=== PATIENT | female | born 1975 ===

== ENCOUNTER 2025-08-21 18:31 | Emergency (ER) | payer SELFPAY ==
[~2025-08-21] VITALS: Ht 170.2 cm; Wt 63.5 kg
[2025-08-21 18:59] VITALS: BP 130/70
[2025-08-21] MEDS ORDERED: NAPROXEN 500 MG TABLET ONE (19:27)
[2025-08-21] MEDS ORDERED: ACETAMINOPHEN 500 MG TABLET ONE (19:27)
[2025-08-21] MEDS: NAPROXEN 500 MG TABLET PO ONE (19:29)
[2025-08-21] MEDS: ACETAMINOPHEN 500 MG TABLET PO ONE (19:29)
[2025-08-21] MEDS ORDERED: TDAP DIPH,PERTUSS,TET VAC/PF 0.5 ML DISP.SYRIN IM ONE (19:48)
[2025-08-21] MEDS: TDAP DIPH,PERTUSS,TET VAC/PF 0.5 ML DISP.SYRIN IM ONE (19:51)
[2025-08-21] MEDS ORDERED: ACET-2605 PO (19:58)
[2025-08-21] MEDS ORDERED: IBUP-2760 PO (19:58)
[2025-08-21 20:11] VITALS: BP 120/69; TEMP 98.1; O2SAT 99
== END 2025-08-21 21:15 | disposition home or self-care (01) ==
LOC: ER 18:43
DX: M79.642 Pain in left hand (principal); M25.512 Pain in left shoulder; M25.562 Pain in left knee; V89.2XXA Person injured in unspecified motor-vehicle accident, traffic, initial encounter; Y93.89 Activity, other specified; Y92.89 Other specified places as the place of occurrence of the external cause; Y99.9 Unspecified external cause status
CPT/HCPCS: 71045; 73030; 73080; 73090; 73130; 90715; A4606; A4663; A9150